=== PATIENT | male | born 1955 | race Caucasian/White ===

== ENCOUNTER 2022-07-17 08:13 | Emergency (ER) | payer MEDICARE, SELFPAY ==
--- NOTE | ~2022-07-17 | XR_ITS ---
EXAMINATION: XR chest 2V DATE: 07/17/2022 08:44 INDICATION: Foreign body aspiration. TECHNIQUE: Frontal and lateral views of the chest were obtained. COMPARISON: None. FINDINGS: There is no pneumonia, pleural effusion, or pneumothorax. The heart size is normal. IMPRESSION: 1. No radiopaque foreign body. Reviewed, dictated and finalized at location A.
--- NOTE | 2022-07-17 08:22 | ED.GENADULT ---
HPI - General Adult General Chief complaint: Unspecified Stated complaint: Swallowed a pill scared it may be stuck in Lungs Time Seen by Provider: 07/17/22 08:22 Source: patient Mode of arrival: ambulatory Limitations: no limitations History of Present Illness HPI narrative: Mr. Ramos is a 67-year-old male patient presenting to the clinic today with complaints that he may have a pill stuck in his lungs. He reports he took a handful of pills with a sore go water and felt as though one of the pills may have gotten lodged in his throat or went into his right bronchus. States that after this happened he became sweaty and felt a burning pain in the right side of his chest. He went outside from [facility] and vomited and then felt better. He has been hearing some gurgling sounds in his lungs so he contacted his doctor's office yesterday and they wanted him to come in and get a chest x-ray done. Related Data Home Medications Medication Instructions Recorded Confirmed atorvastatin 20 mg tablet 20 mg PO DAILY 07/17/22 07/17/22 montelukast 5 mg chewable tablet 5 mg PO DAILY 07/17/22 07/17/22 Allergies Allergy/AdvReac Type Severity Reaction Status Date / Time No Known Allergies Allergy Unverified 07/17/22 08:21 Review of Systems Review of Systems: Pertinent positives per HPI. Patient denies any fever, chills, rash, headache, visual changes, dizziness, cough, runny nose, sore throat, shortness of breath, chest pain, palpitations, nausea, vomiting, diarrhea, constipation, abdominal pain, or any urinary issues. PMFSH Comments At the time of my signature, I reviewed and agree with the nursing past medical, surgical, social, and family history. There is no relevant family history pertinent to the patient complaint. Exam Narrative: General: Well-developed, well nourished, in no apparent distress Head: Normocephalic, atraumatic Eyes: Pupils equally round and reactive to light bilaterally, EOM intact, sclera and conjunctive clear, no discharge, lids normal Ears: TMs intact and clear, ear canals clear, no drainage, grossly hearing normal. Nose: Nares patent, no discharge, no inflammation, no sinus tenderness. Mouth: Oropharynx without lesions or masses, good dentition, MMM. Neck: Supple, trachea midline, no enlargement of anterior or posterior cervical nodes, no thyroid masses or goiter palpable. No esophageal crepitus/subcutaneous emphysema Cardio: Regular rate and rhythm, s1 and s2 normal, no murmur appreciated. Resp: Diminished lung sounds, no rhonchi, rales, wheezing or rubs, SPO2 99%, able to speak in full sentences without gasping for breath Course Course Emergency Course: Portions of this record may have been created with voice recognition software. Level of Care: Express Care Visit Vital Signs Vital signs: Vital signs reviewed Medical Decision Making MDM Narrative Medical decision making narrative: At the time of visit patient is resting comfortably on the exam table. Chest x-ray was completed and was negative for any sign of foreign body ingestion. I suspect the patient may have irritated or potentially has a small tear in his esophagus from taking too many pills at 1 time. Recommended taking pills 1 at a time with a full glass of water to ensure that his pills were all going down appropriately. Patient voiced understanding and discharge instructions were given and he agrees to the treatment plan Differential Diagnosis Differential Diagnosis: Foreign body ingestion, aspiration pneumonia, esophageal tear Imaging Data Radiologist's impression: [facility] [address] [place] [address] XRay Report Signed Patient: Jason Serrano : 1955 MR#: [id number] Age/Sex: 67 / M Acct:[id number] Loc: [facility]? ? ADM Date: 07/17/22Attending Dr: Ordering Physician: Shivam Chester APRN Date of Service: 07/17/22 Procedure(s): XR ches
[2022-07-17 08:28] VITALS: BP 136/69; PULSE 53; RESP 16; TEMP 36.5; O2SAT 99
== END 2022-07-17 08:57 | disposition home or self-care (01) ==
PROVIDERS: Emergency Provider Nurse Practitioner Family; PCP Hospitalist
DX: R13.10 Dysphagia, unspecified (principal); E78.00 Pure hypercholesterolemia, unspecified; J45.909 Unspecified asthma, uncomplicated
CPT/HCPCS: 71046; 99213; G0463